=== PATIENT | male | born 1990 | race Caucasian/White ===

== ENCOUNTER 2019-07-04 17:18 | Emergency (ER) | payer OTHER, SELFPAY ==
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
== END 2019-07-04 19:10 | disposition home or self-care (01) ==
LOC: ERS 17:18
DX: S83.91XA Sprain of unspecified site of right knee, initial encounter (principal); F17.290 Nicotine dependence, other tobacco product, uncomplicated; V49.9XXA Car occupant (driver) (passenger) injured in unspecified traffic accident, initial encounter